=== PATIENT | male | born 1995 | race Caucasian/White ===

== ENCOUNTER 2017-06-30 12:27 | Emergency (ER) | payer SELFPAY ==
[2017-06-30 13:17] VITALS: BP 146/86; PULSE 98; RESP 16; TEMP 37.1; O2SAT 98; BMI 33.1
--- NOTE | 2017-06-30 13:21 | XR_ITS ---
XR wrist RT min 3V COMPARISON: None HISTORY: Right hand pain after a fall TECHNIQUE: AP lateral and oblique views FINDINGS: The distal radius and ulna appear intact. The carpal bones appear normal and the soft tissues are normal. IMPRESSION: Right wrist negative for fracture.
--- NOTE | 2017-06-30 13:21 | XR_ITS ---
XR hand RT min 3V COMPARISON: None HISTORY: Right little finger pain and deformity after a fall TECHNIQUE: AP lateral and oblique views FINDINGS: There is mild diffuse soft tissue swelling about the hand. There is a fracture at the base of the proximal phalanx of the little finger with mild volar angulation at the fracture site. There is flexion contracture of the middle distal phalanx of the little finger. All the metacarpals and remaining phalanges appear intact. IMPRESSION: Fracture proximal phalanx little finger as noted
--- NOTE | 2017-06-30 14:24 | HMH.EDUTC ---
[facility] [place] Disposition Clinical Impression: Fracture of phalanx of right hand, multiple sites, closed Qualifiers: Encounter type: initial encounter Qualified Code(s): S62.609A - Fracture of unspecified phalanx of unspecified finger, initial encounter for closed fracture Disposition: Home, Self-Care Condition on Discharge: Good Instructions: DI for Finger Fracture, How To Perform RICE (Rest, Ice, Compress, Elevate), How to Take Care of Your Splint Additional Instructions: * Rest * ice 15-20 mins 3-4 times a day * splint and sling for support and swelling until you see ortho. Be sure not too tight but not too loose either * Elevate as discussed as much as possible to help reduce swelling and therefore, pain * Ibuprofen every 6 hours as needed for pain and inflammation. If you need something more, you can take tylenol every 4 hours as needed as long as your primary care provider has told you it is ok to take both. * Clear liquids as we discussed until 7am. Nothing by mouth after 7am until you talk to Dr. Mcgrath's office. Referrals: Eddie Mcgrath MD [Staff Physician] - (Call office in the morning. Report seen in [facility] today. Complicated phalanx fracture right 5th digit. MUSIC ASSISTANT spoke to Dr. Mcgrath. In orthoglass. He made you NPO until you called in morning for possible procedure if he was able to get you in on Saturday but may not be on Saturday. ) Forms: Work/School Release Time of Disposition: 15:30 Medical Decision Making Vital Signs: 06/30/17 13:17 06/30/17 16:10 Temperature 98.8 F 98.8 F Temperature Source Temporal Artery Scan Pulse Rate 98 H Pulse Rate [Left Brachial] 98 H Respiratory Rate 16 16 Blood Pressure 146/86 Blood Pressure [Left Arm] 146/86 Blood Pressure Mean [Left Arm] 106 Blood Pressure Source [Left Arm] Automatic Cuff Blood Pressure Position [Left Arm] Sitting 02 Sat by Pulse Oximetry 98 Oxygen Delivery Method Room Air - Radiology Data #1 Image(s): Wrist (right), Hand (right) Image Reviewed: Yes I reviewed the patient's radiology image comminuted horizontal fracture right proximal phalanx not involving joint Rvwd w/ Dr. Mcgrath, ortho - Physician Consults Physician Consulted: Dr. Luna, Ortho Time: 14:25 Reason -: Pt condition Comment/Response: Sql Bi Developer paged. Reports she had to leave a message. Returned call at 1450. Dr. Mcgrath rvwd xray. Staighten digit as much as possible but does not have to be straight unless i feel comfortable with digit block and attempting to straigten further. At minimal, meggan tape to 4th digit. Feels pt would be most comfortable in a well padded ulna gutter splint. Clear Liquids until 7a then NPO. Call his office in the morning when they open. They will try to get him in. - Abe Inquiry Pt receiving controlled substance: No [facility] [place] HPI - General Stated complaint: AO 06/30/17 injury ro right hand Time Seen by Provider: 06/30/17 14:10 Mode of Arrival: Ambulatory Source of Information: Patient Limitations: No Limitations Description of Symptoms (Recalled from Triage Doc. by RN): rt hand pain and swelling following a fall at 1100 HEENT Symptoms (Recalled from RN notes): No Resp Symptoms (Recalled from RN notes): No Skin Symptoms (Recalled from RN notes): No MS Symptoms (Recalled from RN notes): Yes (rt hand injury) Functional Status (Recalled from RN notes): n/a - History of Present Illness Provider Complaint: c/o right hand pain, primarily 5th digit, since falling. Reports while carrying in groceries around 11am, fell and hit 5th digit on a culvert in the yard. Immediate pain and limited ROM. No medication since injury and declines multiple offers for pain medication here in clinic. Denies N/T. Limited ROM of 5th digit. - Related Data Allergies Allergy/AdvReac Type Severity Reaction Status Date / Time NO KNOWN ALLERGIES Allergy Uncoded 06/04/17 15:27 - Worker's Comp Is this a Worker's Comp case?: No [facility] History I have reviewed the patient's past medica
--- NOTE | 2017-06-30 14:27 | ED_ITS ---
[facility] [place] Clinical Impression: Fracture of phalanx of right hand, multiple sites, closed Qualifiers: Encounter type: initial encounter Qualified Code(s): S62.609A - Fracture of unspecified phalanx of unspecified finger, initial encounter for closed fracture Disposition: Home, Self-Care Condition on Discharge: Good Instructions: DI for Finger Fracture, How To Perform RICE (Rest, Ice, Compress , Elevate), How to Take Care of Your Splint Additional Instructions: * Rest * ice 15-20 mins 3-4 times a day * splint and sling for support and swelling until you see ortho. Be sure not too tight but not too loose either * Elevate as discussed as much as possible to help reduce swelling and therefore , pain * Ibuprofen every 6 hours as needed for pain and inflammation. If you need something more, you can take tylenol every 4 hours as needed as long as your primary care provider has told you it is ok to take both. * Clear liquids as we discussed until 7am. Nothing by mouth after 7am until you talk to Dr. Mcgrath's office. Referrals: Eddie Mcgrath MD [Staff Physician] - (Call office in the morning. Report seen in [facility] today. Complicated phalanx fracture right 5th digit. MANAGING EDITOR spoke to Dr. Mcgrath. In orthoglass. He made you NPO until you called in morning for possible procedure if he was able to get you in on Saturday but may not be on Saturday. ) Forms: Work/School Release Time of Disposition: 15:30 Medical Decision Making Vital Signs: 06/30/17 13:17 06/30/17 16:10 Temperature 98.8 F 98.8 F Temperature Source Temporal Artery Scan Pulse Rate 98 H Pulse Rate [Left Brachial] 98 H Respiratory Rate 16 16 Blood Pressure 146/86 Blood Pressure [Left Arm] 146/86 Blood Pressure Mean [Left Arm] 106 Blood Pressure Source [Left Arm] Automatic Cuff Blood Pressure Position [Left Arm] Sitting 02 Sat by Pulse Oximetry 98 Oxygen Delivery Method Room Air - Radiology Data #1 Image(s): Wrist (right), Hand (right) Image Reviewed: Yes I reviewed the patient's radiology image comminuted horizontal fracture right proximal phalanx not involving joint Rvwd w/ Dr. Mcgrath, ortho - Physician Consults Physician Consulted: Dr. Luna, Ortho Time: 14:25 Reason -: Pt condition Comment/Response: Builder'S Labourer paged. Reports she had to leave a message. Returned call at 1450. Dr. Mcgrath rvwd xray. Staighten digit as much as possible but does not have to be straight unless i feel comfortable with digit block and attempting to straigten further. At minimal, meggan tape to 4th digit. Feels pt would be most comfortable in a well padded ulna gutter splint. Clear Liquids until 7a then NPO. Call his office in the morning when they open. They will try to get him in. - Aeb Inquiry Pt receiving controlled substance: No [facility] [place] HPI - General Stated complaint: AO 06/30/17 injury ro right hand Time Seen by Provider: 06/30/17 14:10 Mode of Arrival: Ambulatory Source of Information: Patient Limitations: No Limitations Description of Symptoms (Recalled from Triage Doc. by RN): rt hand pain and swelling following a fall at 1100 HEENT Symptoms (Recalled from RN notes): No Resp Symptoms (Recalled from RN notes): No Skin Symptoms (Recalled from RN notes): No MS Symptoms (Recalled from RN notes): Yes (rt hand injury) Functional Status (Recalled from RN notes): n/a - History of Present Illness Provider Complaint: c/o right hand pain, primarily 5th digit, since falling. Reports while carrying in groceries
[2017-06-30 16:10] VITALS: BP 146/86; PULSE 98; RESP 16; TEMP 37.1; O2SAT 98
== END 2017-06-30 16:16 | disposition home or self-care (01) ==
PROVIDERS: Emergency Provider Nurse Practitioner Family; Family Provider Internal Medicine Adolescent Medicine
DX: S62.606A Fracture of unspecified phalanx of right little finger, initial encounter for closed fracture (principal); W18.09XA Striking against other object with subsequent fall, initial encounter; Y93.01 Activity, walking, marching and hiking; Y92.007 Garden or yard of unspecified non-institutional (private) residence as the place of occurrence of the external cause; F17.210 Nicotine dependence, cigarettes, uncomplicated
CPT/HCPCS: 29125; 73110; 73130; 99203; 99284

== ENCOUNTER 2017-07-03 09:41 | Day surgery (SDC) | payer SELFPAY ==
[2017-07-03] VITALS (9 sets, daily range): BP systolic 113–159; BP diastolic 52–96; PULSE 70–100; RESP 16–18; TEMP 36.2–37.2; O2SAT 93–98; BMI 32.7
--- NOTE | 2017-07-03 10:28 | HMH.ANESCL ---
[facility] Anesthesia Checklist - Patient Identification Patient Identification: Arm Band, Verbal (Name & ) - Structural Data Admitted From: Home Planned Operative Procedure/s: closed reduction right fifth digit Consent for Planned Operative Procedure(s) Verified: Yes Verified Documents: Surgical Consent - NPO Status Verified Time NPO: 00:00 - Chart Verification Results Verified: None - Additional verifications Hx Blood Transfusions: No Blood Transfusion Reaction: No Cephalosporin Allergy: No Previous Colonoscopy: No - Cardiovascular Assessment Heart Sounds: S1 & S2 Pulse Strength: Strong Pulse Rhythm: Regular Peripheral Edema: No - Airway Assessment C-Spine Mobility Assessed: Yes TMJ Mobility Assessed: Yes Dentition: Good Dentition - Neurological Assessment Level of Consciousness: Awake, Alert, Appropriate Hx Seizures: No Numbness or tingling in extremities: No - Anesthesia Plan Anesthesia Risk discussed: Yes Anesthesia Plan: Verified ASA Class: I Anesthesia Type: General [facility] Anesthesia HX I have reviewed the patient's past medical history: Yes Medical History: Denies:: Cancer, Diabetes Mellitus Type 1, Diabetes Mellitus Type 2, Hypertension, MRSA Comment: left ear tube, toe Laterality Cases: Right: Other Other Surgeries: Yes: Other Amputation: No Fractures: No *Family Hx:: Diabetes
--- NOTE | 2017-07-03 12:11 | P.PN_ITS ---
[facility] Anesthesia Record Part II Discharge Time: 12:25 Destination: [facility] PACU nurse assessment reviewed?: Yes Patient Condition:: Good Anesthesia Complications:: None
--- NOTE | 2017-07-03 12:11 | P.PN_ITS ---
[facility] Anesthesia Record Part I Intake, IV Amount: 1,200 Estimated blood loss (mL): 0 Urine output (mL): 0 Blood Pressure: 113/54 SaO2: 95 Pulse Rate: 70 Respiratory Rate: 16 Temperature: 97.8 F Patient is:: Drowsy, Nasal O2, Oral/Nasal airway Stable to PACU at:: 12:05
--- NOTE | 2017-07-03 12:11 | HMH.ANESII ---
[facility] Anesthesia Record Part II Discharge Time: 12:25 Destination: [facility] PACU nurse assessment reviewed?: Yes Patient Condition:: Good Anesthesia Complications:: None
--- NOTE | 2017-07-03 12:25 | XR_ITS ---
XR hand RT min 3V HISTORY: Follow-up] reduction finger fracture ITS.REASON: closed reduction right small finger ORDERING PHYSICIAN: Eddie Mcgrath MD PATIENT AGE: 21 years COMPARISON: 06/30/2017 FINDINGS: Comminuted fracture involves the base of the proximal phalanx of the fifth digit. There is good alignment and no significant displacement following closed reduction. IMPRESSION: Status post closed reduction of the proximal phalanx fracture the fifth digit with good alignment
--- NOTE | 2017-07-03 12:44 | HMH.OPNOTE ---
Date of procedure: 07/03/17 Pre-op Diagnosis:: Displaced, extra-articular, fracture base of proximal phalanx, right fifth digit Post-op diagnosis:: same Procedure performed:: Closed reduction and splinting of Displaced, extra-articular, fracture base of proximal phalanx, right fifth digit Surgeon:: Eddie Mcgrath MD HAND GLASS CUTTER:: Singh Briscoesimone Anesthesia: LMA Estimated blood loss (mL): 0 Operative findings:: The patient has incurred a Displaced, extra-articular, fracture base of proximal phalanx, right fifth digit. This is resulting in a malalignment of the involved digit. Closed reduction and splinting is indicated to appropriately align the digit and improve functional outcome. Operative note:: The patient was taken to the operating room and under general anesthesia, the C arm fluoroscope was used to determine the geometry of the fracture and the point of maximum angulation. I performed a closed reduction by applying traction and appropriate counterpressure at the apex of the angled deformity while flexing the MCP joint. This resulted in a near anatomic reduction of the fracture as reviewed by C arm. Following reduction, the nailbeds were noted to be parallel. The fifth digit could be passively flexed and the fourth digit had the appropriate amount of overlap as confirmed by exam of the contralateral hand. Fracture reduction appeared stable. A small amount of soft roll cast under padding was placed between the fingers to assist in maintaining the reduction and the 2 digits secured to each other with Covan. We then applied an aluminum foam splint to help maintain the reduction and protected. Final C arm fluoroscopic images showed no change in fracture position. The patient was awakened and transported to the recovery room in satisfactory condition. Condition: stable Disposition: PACU Complications:: None
--- NOTE | 2017-07-03 13:50 | PC.NURSE ---
1205-REPORT RECIEVED FROM NEHEMIAH DAVIES.
--- NOTE | 2017-07-03 13:57 | PC.NURSE ---
1215-PT VERY DROWSY/AWAKENING, ORAL AIRWAY REMOVED. PT NOTED TO HAVE LOOSE COUGH UPON AWAKENING.
--- NOTE | 2017-07-03 14:01 | PC.NURSE ---
1225-PT EATING ICE CHIPS W/OUT DIFFICULTY. WHEN PAIN ASSESSED, PT DENIES AND STATES HE DOES NOT WANT TO TAKE ANY MEDICATION FOR PAIN CONTROL.
--- NOTE | 2017-07-03 14:04 | PC.NURSE ---
1229-RADIOLOGY AT BEDSIDE 1232-DETAILED REPORT CALLED TO EDEN MAHARAJ. PT CONTINUES TO EAT ICE CHIPS W/OUT DIFFICULTY. 1235-PT TRANSPORTED TO POST OP VIA STRETCHER WITH RAILS UP AND LEFT IN CARE OF EDEN MAHARAJ W/ BED LOCKED IN LOWEST POSITION. VSS. PT STABLE.
--- NOTE | 2017-07-03 16:30 | SUR.OPER ---
DSG TO RIGHT HAND CONSISTS OF FOAM/ALUMINUM SPLINT AND COBAN
== END 2017-07-03 13:00 | disposition home or self-care (01) ==
PROVIDERS: Family Provider Internal Medicine Adolescent Medicine; Visit Provider Orthopaedic Surgery
PROC: (CPT 26725; principal; 2017-07-03 11:00)
DX: S62.610A Displaced fracture of proximal phalanx of right index finger, initial encounter for closed fracture (principal)
CPT/HCPCS: 26725; 73130; 73140; 76000; J2405